=== PATIENT | female | born 1990 | race Asian ===

== ENCOUNTER 2018-03-22 02:51 | Inpatient (IN) ==
[2018-03-22] MEDS ORDERED: Oxytocin 30 Units/500ml Premix 30 UNITS/500 ML BAG IV.SIG ONE (04:23)
[2018-03-22] MEDS ORDERED: Sodium Chlor 0.9% Inj 500 ML IV.SIG PRN (04:23)
[2018-03-22] MEDS ORDERED: Sod Chloride 0.9% Inj 1,000 ML IV.CONT PRN (04:23)
[2018-03-22] MEDS ORDERED: fentaNYL Citrate Inj 100 MCG/2 ML Ampul IV.PUSH PRN ×2 (04:23)
[2018-03-22] MEDS ORDERED: Naloxone Inj 0.4 MG/ML Vial IV.PUSH PRN ×2 (04:23→17:02)
[2018-03-22] MEDS ORDERED: Citric Acid/Sodium Citrate Liq 30 ML UDC PO SCH (04:30)
[2018-03-22 04:31] LABS: Baso % (Auto) 0.3 % (0.0-2.0); Eos # (Auto) 0.2 th/mm3 (0.0-0.4); Eos % (Auto) 1.4 % (0.0-4.0); Hematocrit 41.2 % (35.0-46.0); Hemoglobin 13.9 gm/dL (11.6-15.3); Lymph # (Auto) 1.8 th/mm3 (1.0-4.8); Lymph % (Auto) 15.6 % (9.0-44.0); Mean Corpuscular HGB Conc 33.6 % (32.0-36.0); Mean Corpuscular Hemoglobin 29.4 pg (27.0-34.0); Mean Corpuscular Volume 87.3 fL (80.0-100.0); Mean Platelet Volume 9.4 fL (7.0-11.0); Mono # (Auto) 0.8 th/mm3 (0.0-0.9); Mono % (Auto) 7.4 % (0.0-8.0); Neut # (Auto) 8.5 th/mm3 (1.8-7.7); Neut % (Auto) 75.3 % (16.0-70.0); Platelet Count 156 th/mm3 (150-450); Red Blood Count 4.72 mil/mm3 (4.00-5.30); Red Cell Distribution Width 14.6 % (11.6-17.2); White Blood Count 11.3 th/mm3 (4.0-11.0)
--- NOTE | 2018-03-22 04:32 | ED ---
History of Present Illness Primary Care Physician: NOT REQUIRED Chief Complaint: ROM History of Present Illness: Pt is a 27y/o @ 38.5wks. She has PNC with Dr. Saez. She presents with c/o LOF at 2am (small amt). Reports ctx which are mildly painful. No VB. +FM. is c/b a h/o CS 3yrs ago for oligo in [place]. She desires . Plan was to have rCS if labor did not occur by next week. Weeks Gestation:: 38 Para: 1 : 2 Review of Systems All other systems reviewed negative except as stated in HPI PMFSH - Medical / Surgical Hx Neg / Unobtainable Medical Problems Denied: Yes - Surgical History Surgical History: Surgical History (Last Updated 03/22/18 @ 04:27 by Liu Steve MD) Previous section - Social History I have reviewed the patient's Social History: Yes - Tobacco History Second Hand Smoke Exposure: No Tobacco Use In Past 30 Days: No Smoking Status: Never smoker - Alcohol History How Often Do You Have a Drink Containing Alcohol: Never - Substance Use History Substance History: No History of Abuse Medications and Allergies Allergies Allergy/AdvReac Type Severity Reaction Status Date / Time No Known Allergies Allergy Verified 03/22/18 04:22 Home Medications Medication Instructions Recorded Confirmed Type + DHA 1 PO DAILY 03/22/18 History folic acid 1 PO DAILY 03/22/18 History Exam Vital signs: Vital Signs 03/22/18 03:45 Temperature 98.8 F Pulse Rate 83 Respiratory Rate 18 Blood Pressure 114/68 Narrative: General: well developed, well nourished, no acute distress HEENT: normocephalic atraumatic, extraocular movements intact, neck supple Abdomen: soft, gravid, nontender, nondistended Uterus: fundus term Extremities: full range of motion Skin: normal coloration, no rashes, no suspicious skin lesions noted Neurologic: cranial nerves 2-12 grossly intact, normal muscle tone, normal gait Psychiatric: normal mood and affect, appropriate FHTs: 145, moderate variability, no decels, no accels, non-reactive [place]: irregular ctx Cvx: 1-2/80/-2, amnisure positive Results - Labs Group B Strep: Negative Assessment and Plan - Diagnosis (1) 38 weeks gestation of Code(s): Z3A.38 - 38 weeks gestation of Status: Acute (2) Rupture of membranes with clear amniotic fluid Status: Acute (3) History of section Code(s): Z98.891 - History of uterine scar from previous surgery Status: Acute - Plan 27y/o @ 38.5wks with SROM, early labor, h/o CS, desires . -- admit to L&D -- CEFM/toco, CLD, epidural/bell PRN -- FHTs non-reactive, moderate variability Dispo: Case d/w Dr. Anthony. Orders to admit pt but not augment. He will cemetery counselor pt on R/B/A of in the morning. T&C [id number]. Courtesy orders placed. He will assume plan of care. Discharge Plan - Discharge Disposition Patient Disposition: ED Admit(ED Internal Use Only) - Discharge Condition Condition: Stable - Physicians Team ED Provider: Liu Steve V Primary Care Provider: NOT REQUIRED, - Rxs /Orders / Referrals /Forms Prescriptions: No Action folic acid bottle 1 PO DAILY + DHA bottle 1 PO DAILY - Discharge Instructions Print Language: Arabic
[2018-03-22 06:25] LABS: Amorphous Sediment,Urine Few /hpf; Bacteria,Urine Occasional /hpf; Bilirubin,Urine Negative (Negative); Clarity,Urine Cloudy (Clear); Color,Urine Yellow (Yellw/Straw); Glucose,Urine (UA) Negative (Negative); Leukocyte Esterase,Urine Moderate (Negative); Mucus,Urine Few /lpf (Occasional); Nitrite,Urine Negative (Negative); Specific Gravity,Urine 1.009 (1.002-1.035); Squamous Epithelial Cell,Urine 18 /hpf (0-5)
[2018-03-22 06:45] LABS: Amphetamine Urine With Conf Neg (Neg); Benzodiazepine Urine With Conf Neg (Neg); Cocaine Urine With Conf Neg (Neg); Opiates Urine With Conf Neg (Neg)
[2018-03-22 06:48] LABS: Cannabinoid Urine With Conf Neg (Neg)
--- NOTE | 2018-03-22 07:40 | P.OBGPN ---
S: Doing well, leakage of fluid, no pain or bleeding. O: Exam: Deferred, nursing checked recently and is 1-2, 90% -3 FHTs: 140s-150s, moderate variability, accelerations present, no decelerations TOCO: Contractions every 10 minutes A/P 27-year-old Urdu here at 38 weeks and 5 days due to spontaneous rupture of membranes. 1. IUP: Category 1 tracing -Male fetus, estimated weight 7 pounds. Cephalic by ultrasound, anterior low placenta. 2. Prelabor rupture of membranes / TOLAC: Discussed via black ash burner operator service the risks, benefits of a prelabor versus TOLAC and successful , intrapartum , she verbalized understanding and wished to proceed. Begin Pitocin for augmentation per protocol. -Type and cross x2, consented her for blood products if needed, she verbalized understanding and is in agreement. 3. History of x1: Per patient, 2012, in [place] secondary to new finding of oligohydramnios, was never told she could not labor in the future 4. History of low-lying placenta: Resolved based on ACOG report from December on US today low anterior, just above bladder
[2018-03-22] MEDS ORDERED: Oxytocin 30 Units/500ml Premix 30 UNITS/500 ML BAG IV.SIG PRN (08:43)
[2018-03-22] MEDS ORDERED: fentaNYL 2MCG-Bupiv 0.125% Epi 150 ML EPIDURAL ONE (10:51)
--- NOTE | 2018-03-22 13:45 | P.OBGPN ---
S: Feeling pain with contractions, overall comfortable with epidural. O: Exam: Complete, +1-2 station. Minimal descent with pushing after 1-2 contractions. FHTs: 140s-150s, moderate variability, no accelerations present, occasional early deceleration TOCO: Contractions every 3 minutes A/P 27-year-old Bahamian here at 38 weeks and 5 days due to spontaneous rupture of membranes. 1. IUP: Category 1 tracing -Male fetus, estimated weight 7 pounds. Cephalic by ultrasound, anterior low placenta. - Reflex urine ctx, will follow up and treat if needed 2. Prelabor rupture of membranes / TOLAC: Counseled at previous encounter, complete, nursing to assist with pushing, anticipate . Continue pit at 12 mu/ min. -Type and cross x2 3. History of x1: Per patient, 2012, in [place] secondary to new finding of oligohydramnios, was never told she could not labor in the future 4. History of low-lying placenta: Resolved based on ACOG report from December on US today low anterior, just above bladder
[2018-03-22] MEDS ORDERED: Azithromycin Inj 500 MG in Sodium Chlor 0.9% Inj 250 ML IV.SIG PRN (15:35)
--- NOTE | 2018-03-22 15:41 | P.OBGPN ---
Pt update: pt has been pushing for 2 hours, still no change in descent, increasing perineal edema and caput, discussed with pt and family via councillor aboriginal land council that option is to allow her to push for 1 additional hour and then if delivery is not imminent will proceed with . By exam pelvis feels inadequate and do feel comfortable with operative delivery. Discussed risks of .
[2018-03-22] MEDS ORDERED: Measles/Mumps/Rubella Vaccine Inj 0.5 ML Vial SQ ONE (16:00)
[2018-03-22] MEDS ORDERED: Diphtheria/Tetanus/Pertussis Vaccine Inj 0.5 ML Syringe IM ONE (16:00)
[2018-03-22] MEDS ORDERED: Carboprost Tromethamine Inj 250 MCG/ML Ampul IM ONE (16:18)
[2018-03-22] MEDS ORDERED: miSOPROStol 200 MCG Tablet ONE (16:18)
[2018-03-22] MEDS ORDERED: Lidocaine 1% Inj 50 ML Vial ONE (16:22)
[2018-03-22] MEDS ORDERED: Bisacodyl 10 MG Supp RECTAL PRN (17:02)
[2018-03-22] MEDS ORDERED: Acetaminophen 325 MG Tablet PO PRN (17:02)
[2018-03-22] MEDS ORDERED: Zolpidem Tartrate 5 MG Tablet PO PRN (17:02)
[2018-03-22] MEDS ORDERED: Benzocaine 20% Top Spray 60 ML Can TOPICAL PRN (17:02)
[2018-03-22] MEDS ORDERED: Oxytocin 30 Units/500ml Premix 30 UNITS/500 ML BAG IV.CONT PRN (17:02)
--- NOTE | 2018-03-22 17:08 | P.OP ---
Surgeon: Андрей Anthony MD Operation and Findings: Preoperative diagnosis: 1. Intrauterine at 38 weeks and 5 days 2. Prelabor rupture of membranes 3. History of x1 Postop diagnosis 1. Same as above status post Procedure 1. Vaginal after Surgeon Dr. Андрей Anthony Animal Ecologist: Joe labor and delivery nursing staff Findings: 1. Viable male at 1612, Apgars 8 and 9, weight 2980g 2. Intact placenta 3 vessel cord at 1614 3. Significant bilateral labial edema and 3a degree laceration Anesthesia: Epidural and 15-20 cc of 1% lidocaine with epinephrine for perineal repair Specimen: Placenta to disposal Estimated blood loss: Approximately 500 cc Fluid replacement: Lactated Ringer's and Pitocin Urine output: None recorded DVT prophylaxis: None required Antibiotics: None required Counts: correct x2 Time out done: yes Disposition: Stable to Indications: Patient is a 27-year-old who presented with prelabor rupture of membranes and was counseled on her options of , trial of labor with the risks and benefits of each, she elected for a trial of labor. Pitocin was started for augmentation she progressed to complete with reassuring heart tones, she pushed for approximately 2.5 hours until the head was . I was called to the room for delivery. Description of procedure: The patient began pushing after the bed was broken down, the head upon was allowed to restitute naturally for delivery with a supported perineum, with gentle downward guidance the anterior shoulder was delivered followed by gentle upper guidance for the posterior shoulder, the torso and lower extremities were delivered with ease and with continued perineal support. The infant had poor tone initially and the cord was clamped cut immediately and handed off to the team for assessment and resuscitation. After the cord was clamped and cut, cord blood was obtained. Pitocin was bolused and with fundal massage the placenta was delivered, there was some brisk uterine bleeding that resolved immediately with bimanual massage and the uterus was firm. The perineum, vagina and cervix were inspected and found to have a 3a laceration was appreciated and repaired with a series of running and interrupted 2-0 and 3-0 Vicryl sutures. There is some generalized oozing from the vaginal mucosa abrasions, hemostasis was achieved with direct pressure. The patient tolerated the procedure well and was left in the birthing suite with her .
[2018-03-22] MEDS ORDERED: fentaNYL Citrate Inj 100 MCG/2 ML Ampul EPIDURAL ONE (19:13)
[2018-03-22] MEDS ORDERED: fentaNYL 2MCG-Bupiv 0.125% Epi 150 ML EPIDURAL PRN (19:13)
[2018-03-23] MEDS: Senna/Docusate Sodium 8.6/50 MG Tablet PO SCH ×3 (00:20→21:24)
[2018-03-23 05:48] LABS: Hematocrit 32.4 % (35.0-46.0); Hemoglobin 11.1 gm/dL (11.6-15.3); Mean Corpuscular HGB Conc 34.3 % (32.0-36.0); Mean Corpuscular Volume 87.5 fL (80.0-100.0); Mean Platelet Volume 8.8 fL (7.0-11.0); Platelet Count 126 th/mm3 (150-450); White Blood Count 17.8 th/mm3 (4.0-11.0)
--- NOTE | 2018-03-23 09:54 | P.PNOB ---
Subjective Post day: 1 Objective Vital Signs/I&O: Vital Signs 03/22/18 09:45 03/22/18 10:06 03/22/18 10:07 Temperature Pulse Rate 77 Respiratory Rate 18 16 Blood Pressure 126/60 03/22/18 10:37 03/22/18 10:45 03/22/18 11:05 Temperature Pulse Rate 69 82 Respiratory Rate 16 Blood Pressure 118/46 L 132/68 03/22/18 11:37 03/22/18 11:45 03/22/18 13:16 Temperature 98.0 F Pulse Rate 81 100 H Respiratory Rate 18 Blood Pressure 130/70 121/87 03/22/18 13:25 03/22/18 13:41 03/22/18 13:52 Temperature 98.0 F Pulse Rate 95 H 91 H Respiratory Rate Blood Pressure 127/65 142/50 H 03/22/18 13:55 03/22/18 14:46 03/22/18 15:20 Temperature Pulse Rate 108 H 113 H 124 H Respiratory Rate Blood Pressure 165/91 H 73/43 L 03/22/18 15:40 03/22/18 16:10 03/22/18 16:48 Temperature Pulse Rate 129 H 139 H 123 H Respiratory Rate 20 20 Blood Pressure 03/22/18 17:17 03/22/18 20:08 03/22/18 20:09 Temperature 98.9 F Pulse Rate 95 H 96 H Respiratory Rate 18 19 Blood Pressure 100/68 133/68 03/22/18 23:52 Temperature 99.4 F Pulse Rate 95 H Respiratory Rate 18 Blood Pressure 112/60 Result Diagrams: 03/23/18 05:38 Objective Remarks: GENERAL: Well-nourished, well-developed patient. CARDIOVASCULAR: Regular rate and rhythm without murmurs, gallops, or rubs. RESPIRATORY: Breath sounds equal bilaterally. No accessory muscle use. ABDOMEN/GI: Abdomen soft, non-tender. Fundus: Firm, non-tender at umbilicus. GENITOURINARY: Light to moderate bleeding, labia with moderate swelling, Bell catheter to bsd clear yellow urine EXTREMITIES: No cyanosis or edema, non-tender, without signs of DVT. Medications and IVs: Active Medications Acetaminophen (Tylenol) 650 mg PO Q4H PRN PRN Reason: PAIN SCALE 1 TO 2 Al Hydroxide/Mg Hydroxide (Milk Of Magnesia Liq) 30 ml PO Q12H PRN PRN Reason: Mild Constipation Benzocaine (Americaine 20% Top [place]) 1 spray TOPICAL Q4H PRN PRN Reason: For Perineum Discomfort Bisacodyl (Dulcolax Supp) 10 mg RECTAL DAILY PRN PRN Reason: SEVERE CONSITIPATION Ephedrine Sulfate (Ephedrine/Ns Syringe) 10 mg IV.PUSH UNSCH PRN PRN Reason: SEE LABEL COMMENTS Stop: 03/23/18 19:13 Azithromycin 500 mg/ Sodium (Chloride) 250 mls @ 250 mls/hr IV.SIG REHABILITATION CASE COORDINATOR PRN PRN Reason: pre op Oxytocin (Pitocin 30 Units/Ns 500 Ml Premix) 30 units in 500 mls @ 100 mls/hr IV.CONT UNSCH PRN PRN Reason: Heavy bleeding Fentanyl/Bupivacaine/Sodium Chlor (Fentanyl 2 Mcg-Bupiv 0.125% Epi) 150 mls @ 12 mls/hr EPIDURAL PRN PRN PRN Reason: for Labor Pain Ibuprofen (Motrin) 800 mg PO Q8H PRN PRN Reason: For Cramping Last Admin: 03/23/18 09:05 Dose: 800 mg Lactulose (Lactulose Liq) 30 ml PO DAILY PRN PRN Reason: SEVERE CONSITIPATION Miscellaneous Information (Misc Information) 1 each OTHER UNSCH PRN PRN Reason: SEE LABEL COMMENTS Stop: 03/23/18 19:13 Miscellaneous Information (Misc Information) 1 each OTHER UNSCH PRN PRN Reason: SEE LABEL COMMENTS Stop: 03/23/18 19:13 Naloxone HCl (Narcan Inj) 0.1 mg IV.PUSH Q2M PRN PRN Reason: for opiate reversal Ondansetron HCl (Zofran Odt) 4 mg PO Q6H PRN PRN Reason: NAUSEA OR VOMITING Oxycodone/Acetaminophen (Percocet 5/325 Mg) 1 tab PO Q4H PRN PRN Reason: PAIN SCALE 3 TO 5 Oxycodone/Acetaminophen (Percocet 5/325 Mg) 2 tab PO Q4H PRN PRN Reason: PAIN SCALE 6 TO 10 Senna/Docusate Sodium (Kristina-Colace) 1 tab PO BID [place] Last Admin: 03/23/18 09:05 Dose: 1 tab Sennosides (Senokot) 17.2 mg PO Q12H PRN PRN Reason: Moderate Constipation Sodium Chloride (Ns Flush) 2 ml IV.FLUSH BID [place] Last Admin: 03/23/18 00:21 Dose: 2 ml Sodium Chloride (Ns Flush) 2 ml IV.FLUSH PRN PRN PRN Reason: FLUSH AFTER USING IV ACCESS Witch Radha/Glycerin (Tucks Pads) 1 applicatio RECTAL QID PRN PRN Reason: HEMORRHOIDS Zolpidem Tartrate (Ambien) 5 mg PO HS PRN PRN Reason: SLEEP Assessment and Plan - Plan pt doing well denies pain, c/o some cramping , pt agreed to take motrin to help cramping and reduce swelling labia with moderate swelling, ice applied bell catheter remains draining clear yellow urine, will remove later vs 105/50, p 83. T 99.0, R 18 white count slightly elevated, platelets 126,000, will repeat cbc in am pt encouraged to ambulate to bathroom for pericare with nurse. routine care Discharge Planning: consider dc tomorrow
[2018-03-23] MEDS: Witch Hazel 50%/Glyderin 12.5% 40 Pad Jar RECTAL PRN (21:23)
[2018-03-24 05:54] LABS: Baso % (Auto) 0.2 % (0.0-2.0); Eos # (Auto) 0.1 th/mm3 (0.0-0.4); Hematocrit 32.4 % (35.0-46.0); Hemoglobin 10.8 gm/dL (11.6-15.3); Lymph % (Auto) 15.4 % (9.0-44.0); Mean Corpuscular HGB Conc 33.2 % (32.0-36.0); Mean Corpuscular Hemoglobin 29.6 pg (27.0-34.0); Mean Corpuscular Volume 89.1 fL (80.0-100.0); Mean Platelet Volume 8.8 fL (7.0-11.0); Mono # (Auto) 0.8 th/mm3 (0.0-0.9); Mono % (Auto) 6.1 % (0.0-8.0); Neut # (Auto) 10.1 th/mm3 (1.8-7.7); Neut % (Auto) 77.3 % (16.0-70.0); Platelet Count 131 th/mm3 (150-450); Red Blood Count 3.64 mil/mm3 (4.00-5.30); White Blood Count 13.1 th/mm3 (4.0-11.0)
[2018-03-24 08:36] VITALS: BP 118/64; PULSE 87; RESP 16; TEMP 98.1
[2018-03-24] MEDS: Senna/Docusate Sodium 8.6/50 MG Tablet PO SCH (08:51)
--- NOTE | 2018-03-24 09:11 | P.PNOB ---
Subjective Post day: 2 Objective Vital Signs/I&O: Vital Signs 03/23/18 15:30 03/23/18 20:00 03/24/18 08:00 Temperature 97.5 F L 98.3 F 98.1 F Pulse Rate 90 70 87 Respiratory Rate 18 18 16 Blood Pressure 121/69 125/63 118/64 Result Diagrams: 03/24/18 04:57 Objective Remarks: GENERAL: Well-nourished, well-developed patient. CARDIOVASCULAR: Regular rate and rhythm without murmurs, gallops, or rubs. RESPIRATORY: Breath sounds equal bilaterally. No accessory muscle use. ABDOMEN/GI: Abdomen soft, non-tender. Fundus: Firm, non-tender at umbilicus. GENITOURINARY: Light to moderate bleeding. EXTREMITIES: No cyanosis or edema +1 to lower extremities, non-tender, without signs of DVT. Medications and IVs: Active Medications Acetaminophen (Tylenol) 650 mg PO Q4H PRN PRN Reason: PAIN SCALE 1 TO 2 Al Hydroxide/Mg Hydroxide (Milk Of Magnesia Liq) 30 ml PO Q12H PRN PRN Reason: Mild Constipation Benzocaine (Americaine 20% Top [place]) 1 spray TOPICAL Q4H PRN PRN Reason: For Perineum Discomfort Last Admin: 03/23/18 21:24 Dose: 1 spray Bisacodyl (Dulcolax Supp) 10 mg RECTAL DAILY PRN PRN Reason: SEVERE CONSITIPATION Azithromycin 500 mg/ Sodium (Chloride) 250 mls @ 250 mls/hr IV.SIG FASHION DESIGNER PRN PRN Reason: pre op Oxytocin (Pitocin 30 Units/Ns 500 Ml Premix) 30 units in 500 mls @ 100 mls/hr IV.CONT UNSCH PRN PRN Reason: Heavy bleeding Fentanyl/Bupivacaine/Sodium Chlor (Fentanyl 2 Mcg-Bupiv 0.125% Epi) 150 mls @ 12 mls/hr EPIDURAL PRN PRN PRN Reason: for Labor Pain Ibuprofen (Motrin) 800 mg PO Q8H PRN PRN Reason: For Cramping Last Admin: 03/23/18 21:24 Dose: 800 mg Lactulose (Lactulose Liq) 30 ml PO DAILY PRN PRN Reason: SEVERE CONSITIPATION Naloxone HCl (Narcan Inj) 0.1 mg IV.PUSH Q2M PRN PRN Reason: for opiate reversal Ondansetron HCl (Zofran Odt) 4 mg PO Q6H PRN PRN Reason: NAUSEA OR VOMITING Oxycodone/Acetaminophen (Percocet 5/325 Mg) 1 tab PO Q4H PRN PRN Reason: PAIN SCALE 3 TO 5 Oxycodone/Acetaminophen (Percocet 5/325 Mg) 2 tab PO Q4H PRN PRN Reason: PAIN SCALE 6 TO 10 Senna/Docusate Sodium (Kristina-Colace) 1 tab PO BID [facility] Last Admin: 03/24/18 08:51 Dose: 1 tab Sennosides (Senokot) 17.2 mg PO Q12H PRN PRN Reason: Moderate Constipation Sodium Chloride (Ns Flush) 2 ml IV.FLUSH BID [facility] Last Admin: 03/24/18 00:46 Dose: Not Given Sodium Chloride (Ns Flush) 2 ml IV.FLUSH PRN PRN PRN Reason: FLUSH AFTER USING IV ACCESS Witch Radha/Glycerin (Tucks Pads) 1 applicatio RECTAL QID PRN PRN Reason: HEMORRHOIDS Last Admin: 03/23/18 21:23 Dose: 1 applicatio Zolpidem Tartrate (Ambien) 5 mg PO HS PRN PRN Reason: SLEEP Assessment and Plan - Plan pt doing well pain well managed with motrin labia swelling significantly reduced, mild swelling noted, pt still applying ice voiding without difficulty platelets stable 131,000, WBC WNL pt c/o constipation stool softener encouraged routine care Discharge Planning: dc today
[2018-03-24] MEDS: Witch Hazel 50%/Glyderin 12.5% 40 Pad Jar RECTAL PRN (10:04)
--- NOTE | 2018-03-24 11:08 | P.DS ---
Date of admission: 03/22/18 04:33 Primary care physician: NOT REQUIRED Attending physician on discharge: Miguel Saez Anticipated date of discharge: 03/24/18 Brief History from admission: 38.5 WEEKS GESTATION SROM, PREVIOUS C SECTION, ATTEMPT DS: Diagnosis - Discharge Diagnosis (1) (normal spontaneous vaginal delivery) Status: Acute DS: Medications - Discharge Medications Prescriptions: ibuprofen 800 mg PO Q8H PRN #30 tab PRN Reason: For Cramping DS: Summary Hospital Course: 38.5 GESTATION PREVIOUS C SECTION, SUCCESSFUL . WITH REPAIR, ROUTINE CARE - Time Spent with Patient Total time spent providing and/or coordinating discharge services: Less than 30 minutes Exam Vital signs: Vital Signs 03/23/18 15:30 03/23/18 20:00 03/24/18 08:00 Temperature 97.5 F L 98.3 F 98.1 F Pulse Rate 90 70 87 Respiratory Rate 18 18 16 Blood Pressure 121/69 125/63 118/64 Results Procedures completed during hospitalization: Labs on day of discharge: Labs from last 24 hours 03/24/18 04:57 WBC 13.1 H RBC 3.64 L Hgb 10.8 L Hct 32.4 L MCV 89.1 MCH 29.6 MCHC 33.2 RDW 15.0 Plt Count 131 L MPV 8.8 Neut % (Auto) 77.3 H Lymph % (Auto) 15.4 [place] % (Auto) 6.1 Eos % (Auto) 1.0 Baso % (Auto) 0.2 Neut # (Auto) 10.1 H Lymph # (Auto) 2.0 [place] # (Auto) 0.8 Eos # (Auto) 0.1 Baso # (Auto) 0.0 WBC Differential . Differential Comment Auto diff final Discharge Plan - Discharge Disposition Patient Disposition: 01 Discharge Home - Discharge Condition Condition: Stable - Discharge Order Discharge Orders: Discharge Order (Routine); Ordered 03/24/18 Ordered By: Syl Perez CORRECTIONS NURSE Clear for Discharge (Routine); Ordered 03/24/18 Ordered By: Syl Perez - Discharge Details Anticipated Discharge Date: 03/24/18 - Physicians Team Primary Care Provider: NOT REQUIRED, Attending Provider: Андрей Anthony
== END 2018-03-24 16:18 | disposition home or self-care (01) ==
LOC: HOBED 02:51 → H2E 04:33 → H1EA 20:17
PROVIDERS: ADMIT Obstetrics & Gynecology; ATTEND Obstetrics & Gynecology